=== PATIENT | female | born 1925 | race Caucasian/White ===

== ENCOUNTER 2016-11-23 18:59 | Inpatient (IN) | payer MEDICARE, OTHER, MEDICAID ==
[~2016-11-23] VITALS: Ht 170.2 cm; Wt 73.5 kg
[~2016-11-23 18:59] MED LIST: AMLO2.5T PO; BISA10SU12 RC; DIVA250T4 PO; DONE10TA44 PO; DULO60CA45 PO; ENOX40DI SQ; HALO5AMP3 IJ; MAGN400O4 PO; MULT1TAB11 PO; NA P133E RC; QUET25TA PO; QUET50TA PO; TRAZ-144 PO
--- NOTE | 2016-11-23 19:07 | NUR ---
PATIENT SENT HERE VIA PRIVATE AMBULANCE FROM [facility] FOR MEDICAL CLEARARNCE AND TO BE PLACED ON 5150 HOLD TO BE ADMITTED TO MHU. PER INTAKE PATIENT IS AGITATED,HITTING STAFF MEMBERS AND COMBATIVE. PATIENT WAS GIVEN ATIVAN AT 1530 [facility]...PT IS ALERT, ORIENTED X 2, PT IS CALM COOPERATIVE, ABLE TO MAKE NEEDS KNOWN... MD AT BEDSIDE...
[2016-11-23] MEDS ORDERED: NEUDEXTA PO (19:30)
[2016-11-23] MEDS ORDERED: MELA5TAB PO (19:30)
[2016-11-23] MEDS ORDERED: CRAN450T9 PO (19:30)
[2016-11-23] MEDS ORDERED: BISA-79 PR (19:30)
[2016-11-23] MEDS ORDERED: LORA2VIA32 IM (19:30)
[2016-11-23 19:50] LABS: BASOPHILS % (AUTO) 0.3 % (0.0-2.0); EOSINOPHILS # (AUTO) 0.1 K/uL (0.0-0.7); EOSINOPHILS % (AUTO) 1.5 % (0.0-7.0); HEMATOCRIT 33.3 % (37-47); LYMPHOCYTES # (AUTO) 1.7 K/UL (0.8-4.8); LYMPHOCYTES % (AUTO) 20.5 % (20.5-51.5); MEAN CORPUSCULAR HEMOGLOBIN 30.3 UUG (27.0-31.0); MEAN CORPUSCULAR HGB CONC 33 g/dL (32.0-37.0); MEAN CORPUSCULAR VOLUME 91.6 FL (81.0-99.0); MONOCYTES # (AUTO) 0.5 K/UL (0.1-1.30); MONOCYTES % (AUTO) 6.4 % (0.0-11.0); NEUTROPHILS # (AUTO) 5.8 K/UL (1.8-8.9); NEUTROPHILS % (AUTO) 71.3 % (38.5-71.5); PLATELET COUNT (AUTO) 293 K/UL (150-450); RED BLOOD CELL COUNT(AUTO) 3.64 MIL/UL (4.2-5.4); WHITE BLOOD COUNT (AUTO) 8.1 K/UL (4.0-11.2)
[2016-11-23 20:14] LABS: ALANINE AMINOTRANSFERASE 12 U/L (14-59); ALKALINE PHOSPHATASE 58 U/L (50-136); ASPARTATE AMINOTRANSFERASE 13 U/L (15-37); BILIRUBIN,DIRECT 0.1 mg/dL (0.0-0.2); BILIRUBIN,TOTAL 0.3 mg/dL (0.2-1.0); CARBON DIOXIDE 29 mmol/L (21-32); CHLORIDE 106 mmol/L (98-107); CREATININE 1.2 mg/dL (0.6-1.3); GLUCOSE 154 mg/dL (74-106); POTASSIUM 3.7 mmol/L (3.5-5.1); TOTAL PROTEIN, SERUM 6.5 g/dL (6.4-8.2); UREA NITROGEN, BLOOD 20 mg/dL (7-18)
[2016-11-23 20:22] LABS: ETHANOL < 3 MG/DL (0-0); THYROID STIMULATING HORMONE 3.478 mIU/mL (0.358-3.740)
--- NOTE | 2016-11-23 20:33 | NUR ---
PER ERMD PT HAS BEEN MEDICALLY CLEARED... CONTACTED [facility] FOR PSYCH EVAL, LEFT MESSAGE TO CALL BACK...
--- NOTE | 2016-11-23 22:31 | NUR ---
Pt. admitted to MHU , under care of Dr. SANDERS, Belongs List completed, pt is alert, oriented x 4, no resp distress noted or reported upon transfer assessment... pt transferred via gurney...
[2016-11-23 23:00] VITALS: BP 143/63
[2016-11-23] MEDS ORDERED: MAGNESIUM HYDROXIDE 30 ML LIQUID UDC PO PRN (23:15)
[2016-11-23] MEDS ORDERED: MAG HYDROX/AL HYDROX/SIMETH 30 ML LIQUID UDC PO PRN (23:15)
[2016-11-23] MEDS ORDERED: TEMAZEPAM 7.5 MG CAPSULE PO PRN (23:15)
[2016-11-23] MEDS ORDERED: ACETAMINOPHEN 325 MG TABLET PO PRN (23:15)
--- NOTE | 2016-11-23 23:49 | NUR ---
GPS: Admitted to unit earlier an 89yr.old female from [facility] on a 72 hour hold for GD. Pt. was aggressive, throwing things at staff and was striking out per hold. Pt. is currently calm at this time but somewhat uncooperative and refused to sign paperworks/refused to answer questions from staff. Belongings list completed. Pt's daughter "Digna" notified of pts.admission to the unit. Re-directed and re-assured by staff. Safety emphasized. Will continue to monitor behavior. Poor insight to present situation.
[2016-11-24 07:30] VITALS: BP 142/82
[2016-11-24] MEDS ORDERED: Medication Not On Formulary EA (Multivitamins W-Minerals (Multivitamin With Minerals) 1 PO SCH (10:00)
--- NOTE | 2016-11-24 11:13 | NUR ---
Initial discharge instructions:Pt resides at [facility] [[address],[place], [phone]].OZZY called and left a voicemail for admissions to discuss if the pt would be accepted back.OZZY called pt's daughter,Digna Paiz [phone] but no answer.OZZY will speak with pt,daughter,and MD regarding appropriate discharge plans.SW will form a safe and proper discharge.
[2016-11-24] MEDS: MULTIVIT, IRON, MIN NO. 8, FA TABLET PO SCH (11:51)
[2016-11-24] MEDS: QUETIAPINE FUMARATE 25 MG TABLET PO SCH ×3 (11:52→17:34)
[2016-11-24] MEDS: DULOXETINE 60 MG CAPSULE.DR PO SCH (11:52)
[2016-11-24] MEDS: DIVALPROEX SPRINKLE 125 MG CAP.SPRINK PO SCH ×3 (11:53→17:33)
[2016-11-24] MEDS: AMLODIPINE 2.5 MG TABLET PO SCH (11:58)
[2016-11-24 15:19] VITALS: BP 117/57
[2016-11-24] MEDS: CLONAZEPAM 0.5 MG TABLET PO PRN (15:24)
[2016-11-24] MEDS: TRAZODONE 50 MG TABLET PO SCH (20:13)
[2016-11-24] MEDS: ATORVASTATIN 10 MG TABLET PO SCH (20:13)
[2016-11-24 20:32] VITALS: BP 110/58
[2016-11-25 07:30] VITALS: BP 146/66
[2016-11-25] MEDS: DIVALPROEX SPRINKLE 125 MG CAP.SPRINK PO SCH ×3 (10:47→17:57)
[2016-11-25] MEDS: QUETIAPINE FUMARATE 25 MG TABLET PO SCH ×3 (10:48→17:57)
[2016-11-25] MEDS: MULTIVIT, IRON, MIN NO. 8, FA TABLET PO SCH (10:48)
[2016-11-25] MEDS: DULOXETINE 60 MG CAPSULE.DR PO SCH (10:48)
[2016-11-25] MEDS: AMLODIPINE 2.5 MG TABLET PO SCH (10:51)
[2016-11-25 16:00] VITALS: BP 122/54
[2016-11-25 19:59] VITALS: BP 118/56
[2016-11-25] MEDS: ATORVASTATIN 10 MG TABLET PO SCH (20:50)
[2016-11-25] MEDS: TRAZODONE 50 MG TABLET PO SCH (20:50)
[2016-11-26 07:30] VITALS: BP 135/63
[2016-11-26] MEDS: QUETIAPINE FUMARATE 25 MG TABLET PO SCH (09:03)
[2016-11-26] MEDS: MULTIVIT, IRON, MIN NO. 8, FA TABLET PO SCH (09:03)
[2016-11-26] MEDS: AMLODIPINE 2.5 MG TABLET PO SCH (09:03)
[2016-11-26] MEDS: DULOXETINE 60 MG CAPSULE.DR PO SCH (09:03)
[2016-11-26] MEDS: DIVALPROEX SPRINKLE 125 MG CAP.SPRINK PO SCH ×2 (09:03→17:30)
[2016-11-26 10:31] LABS: *BILIRUBIN,URIN NEGATIVE (NEGATIVE); *BLOOD, URINE NEGATIVE (NEGATIVE); *CLARITY,URINE CLEAR (CLEAR); *COLOR,URINE YELLOW (YELLOW); *KETONES,URINE 1+ (NEGATIVE); *PROTEIN,URINE TRACE (NEGATIVE); *UROBILINOGEN,URINE 0.2 E.U./dl (NORMAL); LEUKOCYTE ESTERASE ,URINE 1+ (NEGATIVE); NITRITE, URINE NEGATIVE (NEGATIVE); PH,URINE 5.5 (5.0-8.0); UGLUCOSE NEGATIVE (NEGATIVE)
[2016-11-26 10:38] LABS: *AMPHETAMINE, URINE NEGATIVE (NEGATIVE); *BARBITURATE, URINE NEGATIVE (NEGATIVE); *CANNABINOID, URINE NEGATIVE (NEGATIVE); *COCCAINE, URINE NEGATIVE (NEGATIVE); *OPIATE, URINE NEGATIVE (NEGATIVE); *PHENCYCLIDINE SCREEN,URINE NEGATIVE (NEGATIVE)
[2016-11-26 10:43] LABS: RBC,URINE 0-3 /HPF (0-3); WBC,URINE 20-50 /HPF (0-3)
[2016-11-26 10:44] LABS: BACTERIA,URINE FEW /HPF (NONE SEEN); MUCUS,URINE MODERATE /LPF (0-FEW); SQUAMOUS EPITHELIAL CELL,UR MODERATE /HPF (NONE SEEN)
--- NOTE | 2016-11-26 11:04 | NUR ---
GPS/RN- patient anxious restless agitated. confused, frequently redirected. continues to yell, paranoid suspicious, irritable. patient offered PRN at this time, verbalizing no she won't take anything. yelling verbally abusive, Dr Sinclair on unit, emergency dose IM ordered Zyprexa 10mg IM Once.
[2016-11-26] MEDS ORDERED: OLANZAPINE 10 MG VIAL IM ONE (11:15)
[2016-11-26] MEDS ORDERED: QUETIAPINE FUMARATE 25 MG TABLET PO SCH (13:00)
[2016-11-26 13:22] VITALS: BP 111/60
[2016-11-26] MEDS: QUETIAPINE FUMARATE 100 MG TABLET PO SCH ×2 (13:25→17:00)
[2016-11-26 16:00] VITALS: BP 96/48
[2016-11-26] MEDS: CEPHALEXIN MONOHYDRATE 500 MG CAPSULE PO SCH ×2 (17:28→22:18)
[2016-11-26 17:30] VITALS: BP 113/52
[2016-11-26] MEDS: GENTAMICIN SULFATE OPHT DROP 5 ML BOTTLE EACHEYE SCH (17:31)
[2016-11-26 20:10] VITALS: BP 104/60
[2016-11-26] MEDS: Z GUARD REMEDY PASTE 57 GM TUBE TOP SCH (21:00)
[2016-11-26] MEDS: TRAZODONE 50 MG TABLET PO SCH (22:18)
[2016-11-26] MEDS: ATORVASTATIN 10 MG TABLET PO SCH (22:18)
[2016-11-27] MEDS: GENTAMICIN SULFATE OPHT DROP 5 ML BOTTLE EACHEYE SCH ×4 (00:11→17:08)
[2016-11-27] MEDS: CEPHALEXIN MONOHYDRATE 500 MG CAPSULE PO SCH (05:35)
[2016-11-27 07:30] VITALS: BP 135/66
[2016-11-27 07:35] LABS: BASOPHILS % (AUTO) 0.6 % (0.0-2.0); EOSINOPHILS # (AUTO) 0.2 K/uL (0.0-0.7); EOSINOPHILS % (AUTO) 4.3 % (0.0-7.0); HEMATOCRIT 37.1 % (37-47); HEMOGLOBIN 13.1 G/DL (12.0-16.0); LYMPHOCYTES # (AUTO) 1.3 K/UL (0.8-4.8); LYMPHOCYTES % (AUTO) 23.9 % (20.5-51.5); MEAN CORPUSCULAR HEMOGLOBIN 32.3 UUG (27.0-31.0); MEAN CORPUSCULAR HGB CONC 35 g/dL (32.0-37.0); MEAN CORPUSCULAR VOLUME 91.8 FL (81.0-99.0); MONOCYTES # (AUTO) 0.4 K/UL (0.1-1.30); MONOCYTES % (AUTO) 8.1 % (0.0-11.0); NEUTROPHILS # (AUTO) 3.6 K/UL (1.8-8.9); NEUTROPHILS % (AUTO) 63.1 % (38.5-71.5); PLATELET COUNT (AUTO) 265 K/UL (150-450)
[2016-11-27 07:43] LABS: RED BLOOD CELL COUNT(AUTO) 4.04 MIL/UL (4.2-5.4); WHITE BLOOD COUNT (AUTO) 5.5 K/UL (4.0-11.2)
[2016-11-27 08:00] LABS: ALANINE AMINOTRANSFERASE 12 U/L (14-59); ALKALINE PHOSPHATASE 58 U/L (50-136); ASPARTATE AMINOTRANSFERASE 14 U/L (15-37); BILIRUBIN,TOTAL 0.3 mg/dL (0.2-1.0); CARBON DIOXIDE 29 mmol/L (21-32); CHLORIDE 109 mmol/L (98-107); GLUCOSE 119 mg/dL (74-106); PHOSPHOROUS 3.7 mg/dL (2.5-4.9); POTASSIUM 3.8 mmol/L (3.5-5.1); UREA NITROGEN, BLOOD 21 mg/dL (7-18); VALPROIC ACID 50 ug/mL (50-100)
[2016-11-27] MEDS: DIVALPROEX SPRINKLE 125 MG CAP.SPRINK PO SCH ×2 (08:56→17:00)
[2016-11-27] MEDS: QUETIAPINE FUMARATE 100 MG TABLET PO SCH ×3 (08:57→17:08)
[2016-11-27] MEDS: DULOXETINE 60 MG CAPSULE.DR PO SCH (08:57)
[2016-11-27] MEDS: AMLODIPINE 2.5 MG TABLET PO SCH (08:58)
[2016-11-27] MEDS: Z GUARD REMEDY PASTE 57 GM TUBE TOP SCH ×2 (09:02→20:02)
[2016-11-27] MEDS: MULTIVIT, IRON, MIN NO. 8, FA TABLET PO SCH (09:09)
[2016-11-27] MEDS: CLONAZEPAM 0.5 MG TABLET PO PRN (10:29)
[2016-11-27 10:31] VITALS: BP 116/55
[2016-11-27] MEDS: AMPICILLIN 500 MG CAPSULE PO SCH ×2 (12:46→18:20)
[2016-11-27 15:16] VITALS: BP 96/51
--- NOTE | 2016-11-27 18:23 | NUR ---
APRIL HELD DUE TO PATIENTS BLOOD PRESSURE DROPPING WHEN TAKING SEROQUEL AT 1300P PATIENTS BLOOD PRESSURE DROPPED TO 96/51 HR WAS 73 SO I WAS INFORMED NOT TO GIVE WITH THE SEROQUEL TO PREVENT DROP IN BLOOD PRESSURE
--- NOTE | 2016-11-27 18:40 | NUR ---
PATIENT VERY CONFUSED AND NON COMPLIANT UP IN ROLO CHAIR IN FRONT OF DESK EASILY AGITATED COMPLIANT WITH MEDS . CONTINUE TO MONITOR FOR SAFETY
[2016-11-27 19:57] VITALS: BP 99/50
[2016-11-27] MEDS: ATORVASTATIN 10 MG TABLET PO SCH (21:54)
[2016-11-27] MEDS: TRAZODONE 50 MG TABLET PO SCH (21:54)
[2016-11-28] MEDS: GENTAMICIN SULFATE OPHT DROP 5 ML BOTTLE EACHEYE SCH ×5 (00:31→23:40)
[2016-11-28] MEDS: AMPICILLIN 500 MG CAPSULE PO SCH ×5 (00:31→23:40)
[2016-11-28 07:30] VITALS: BP 139/70
[2016-11-28] MEDS: Z GUARD REMEDY PASTE 57 GM TUBE TOP SCH ×2 (09:19→21:17)
[2016-11-28] MEDS: DIVALPROEX SPRINKLE 125 MG CAP.SPRINK PO SCH ×2 (10:11→18:22)
[2016-11-28] MEDS: DULOXETINE 60 MG CAPSULE.DR PO SCH (10:11)
[2016-11-28] MEDS: QUETIAPINE FUMARATE 100 MG TABLET PO SCH ×3 (10:11→18:22)
[2016-11-28] MEDS: MULTIVIT, IRON, MIN NO. 8, FA TABLET PO SCH (10:11)
[2016-11-28] MEDS: AMLODIPINE 2.5 MG TABLET PO SCH (10:12)
[2016-11-28] MEDS ORDERED: MAGNESIUM HYDROXIDE 30 ML LIQUID UDC PO ONE (13:45)
[2016-11-28] MEDS: DOCUSATE SODIUM 100 MG CAPSULE PO SCH ×2 (14:10→21:17)
[2016-11-28 16:30] VITALS: BP 106/55
--- NOTE | 2016-11-28 16:32 | NUR ---
GPS: Nursing Notes: Transfer To 201 G: Transfer to GPS overflow room # 201 G, report given to nurse Reyna RN, per nursing shipping room supervisor.
--- NOTE | 2016-11-28 17:32 | NUR ---
PATIENT WAS OVERFLOW FROM MHU IN STABLE CONDITIONS. NO S/S OF DISTRESS NOTED. PATIENT IS CALM CALM SITTING ON HER ROOM. NO S/S OF AGITATION. SITTER 1:1 FOR SAFETY. SAFETY AND COMFORT PROVIDED. WILL CONTINUE MONITORING.
[2016-11-28 20:00] VITALS: BP 114/57
--- NOTE | 2016-11-28 20:00 | NUR ---
RECEIVED PATIENT AWAKE, SITTING IN ROLO-CHAIR. SITTER AT BEDSIDE FOR SAFETY. PATIENT IS ALERT TO SELF. CONFUSED BUT PLEASANT WHEN APPROACHED. DENIES PAIN OR DISCOMFORT. NO RESP. DISTRESS NOTED. CALL LIGHT IN REACH. ALL NEEDS ATTENDED.WILL CONTINUE TO MONITOR.
[2016-11-28] MEDS: TRAZODONE 50 MG TABLET PO SCH (21:17)
[2016-11-28] MEDS: ATORVASTATIN 10 MG TABLET PO SCH (21:17)
--- NOTE | 2016-11-28 23:50 | NUR ---
PATIENT ASLEEP IN BED. BECOMES EASILY AGITATED WHEN WAKEN UP. PATIENT IS DUE FOR MIDNIGHT MEDS. UNABLE TO LOCATE EYE DROPS AT THIS TIME. CALLED [facility] TO SEE IF MEDS WERE STILL DOWN IN THE CASSETTE. NONE NOTED. WILL ENDORSE IN AM. ALL NEEDS ATTENDED.
[2016-11-29] MEDS: GENTAMICIN SULFATE OPHT DROP 5 ML BOTTLE EACHEYE SCH ×3 (06:00→17:26)
[2016-11-29] MEDS: AMPICILLIN 500 MG CAPSULE PO SCH ×3 (06:00→17:26)
--- NOTE | 2016-11-29 06:18 | NUR ---
PATIENT ASLEEP IN BED. PATIENT SLEPT A TOTAL OF 8 HOURS. SITTER AT BEDSIDE. ALL NEEDS ATTENDED.
--- NOTE | 2016-11-29 07:30 | NUR ---
PT RECEIVED IN BED SLEEPING,SITTER AT BED SIDE,
[2016-11-29] MEDS: MULTIVIT, IRON, MIN NO. 8, FA TABLET PO SCH (08:07)
[2016-11-29] MEDS: DOCUSATE SODIUM 100 MG CAPSULE PO SCH ×2 (08:07→20:27)
[2016-11-29] MEDS: QUETIAPINE FUMARATE 100 MG TABLET PO SCH ×3 (08:08→16:11)
[2016-11-29] MEDS: AMLODIPINE 2.5 MG TABLET PO SCH (08:08)
[2016-11-29] MEDS: DIVALPROEX SPRINKLE 125 MG CAP.SPRINK PO SCH ×2 (08:08→16:11)
[2016-11-29] MEDS: DULOXETINE 60 MG CAPSULE.DR PO SCH (08:08)
[2016-11-29 08:16] VITALS: BP 136/64
[2016-11-29] MEDS: Z GUARD REMEDY PASTE 57 GM TUBE TOP SCH ×2 (08:18→20:29)
[2016-11-29] MEDS ORDERED: BISACODYL 10 MG SUPP.RECT RC ONE (13:15)
[2016-11-29 16:24] VITALS: BP 109/60
[2016-11-29 20:00] VITALS: BP 108/49
--- NOTE | 2016-11-29 20:00 | NUR ---
patient received laying in bed, no acute distress noted. Pt remains confused/disoriented. Affect flat. No aggressive or combative behavior noted. 1:1 sitter at all times. Compliant with medications at bedtime. Will continue to monitor for safety.
[2016-11-29] MEDS: ATORVASTATIN 10 MG TABLET PO SCH (20:27)
[2016-11-29] MEDS: TRAZODONE 50 MG TABLET PO SCH (20:28)
[2016-11-30] MEDS: GENTAMICIN SULFATE OPHT DROP 5 ML BOTTLE EACHEYE SCH ×3 (06:42→12:06)
[2016-11-30] MEDS: AMPICILLIN 500 MG CAPSULE PO SCH ×3 (06:42→12:06)
[2016-11-30] MEDS: AMLODIPINE 2.5 MG TABLET PO SCH (09:00)
--- NOTE | 2016-11-30 09:00 | NUR ---
PER THE DIRECTOR CARDIAC PATIENT WILL BE DISCHARGED TODAY TO [facility] AND PATIENTS DAUGHTER HAD CALLED ME TO INQUIRE ON HER MOTHER AND I INFORMED HER THAT PATIENT WILL BE DISCHARGED TODAY TO [facility] AND SHE STATED OKAY WILL CALL THE [employer] MECHANIC
[2016-11-30] MEDS: QUETIAPINE FUMARATE 100 MG TABLET PO SCH ×2 (09:08→12:08)
[2016-11-30] MEDS: DIVALPROEX SPRINKLE 125 MG CAP.SPRINK PO SCH (09:08)
[2016-11-30] MEDS: MULTIVIT, IRON, MIN NO. 8, FA TABLET PO SCH (09:08)
[2016-11-30] MEDS: DOCUSATE SODIUM 100 MG CAPSULE PO SCH (09:08)
[2016-11-30] MEDS: Z GUARD REMEDY PASTE 57 GM TUBE TOP SCH (09:08)
[2016-11-30] MEDS: DULOXETINE 60 MG CAPSULE.DR PO SCH (09:08)
[2016-11-30 09:23] VITALS: BP 106/46
--- NOTE | 2016-11-30 10:51 | NUR ---
DC Note: Patient will be discharged to [facility] [[address], [place] [address]; ] via ambulance at 1:00 pm. Spoke with Marcy (Admissions) at the facility who stated she would accept the patient today. Spoke with patient's daughter, Digna Paiz [phone] who is aware and agreeable with discharge plans. Patient will follow-up with ([facility]) and (Psychiatrist) at the facility.
--- NOTE | 2016-11-30 12:21 | NUR ---
CALLED [facility] SPOKE WITH TERESITA AND REPORT GIVEN TO HIM FOR CONTINUING CARE.PATIENT REMAIN ON ANTIBIOTICS FOR BLADDER INFECTION ORDERED WITH NO ADVERSE OR ALLERGIC REACTIONS AT THIS TIME FLUIDS ENCOURAGED.
--- NOTE | 2016-11-30 14:05 | NUR ---
PATIENT DISCHARGED PICKED UP BY [facility] IN SATISFACTORY CONDITION WITH DISCHARGE INSTRUCTIONS AND TMS AND ALL HER PERSONAL BELONGINGS.
== END 2016-11-30 14:05 | DRG 885 ==
LOC: ER 19:01 → GPS 22:33 → MED 11-28 15:18 → GPSOV 11-28 15:26
PROVIDERS: ADMIT Psychiatry & Neurology Psychiatry; ATTEND Psychiatry & Neurology Psychiatry
DX: F33.3 Major depressive disorder, recurrent, severe with psychotic symptoms (principal); F02.81 Dementia in other diseases classified elsewhere, unspecified severity, with behavioral disturbance; E87.0 Hyperosmolality and hypernatremia; N39.0 Urinary tract infection, site not specified; F29 Unspecified psychosis not due to a substance or known physiological condition; G30.9 Alzheimer's disease, unspecified; D64.9 Anemia, unspecified; I10 Essential (primary) hypertension; F48.2 Pseudobulbar affect; F41.9 Anxiety disorder, unspecified; E78.5 Hyperlipidemia, unspecified; K59.00 Constipation, unspecified; H01.009 Unspecified blepharitis unspecified eye, unspecified eyelid
CPT/HCPCS: 36415; 71010; 80164; 80307; 83735; 84100; 84443; 85025; 85730; 87077; 87086; 93005; 97116; 97161; 97530; G0480; J0290; J2358